=== PATIENT | female | born 1990 | race Caucasian/White ===

== ENCOUNTER 2021-11-28 08:00 | Outpatient (RCR) | payer MEDICAID, SELFPAY ==
--- NOTE | 2021-10-10 17:43 | PT.OPEX ---
PT [facility] Eval Start: 10/10/21 07:59 Freq: Status: Active Protocol: Document 10/10/21 15:16 JUAN CARLOS (Rec: 10/10/21 15:33 JUAN CARLOS [id number]) E-signed By Radha Weiner, PT Physical Therapy Outpatient Evaluation Insurance Information Recert Due Date 12/09/21 Insurance Name Medicaid,[employer] Medical Diagnosis constipation weakness of PF Treating Diagnosis weakness muscle spams mild AURELIANO Subjective Subjective Carolynn presents to PT with diagnosis of constipation and weakness of PFM. Pt's main c /o is bleeding and pain with defecation. Does have issues with hemorrhoids. Pt has struggled with hemorrhoids and pain with defecation since her youth. Did struggle with constipation but has been able to have daily BMs. Her BMs seems to have improved after the of her second child approx 4 months ago. Her first child is 1.5 yrs ago. She admits to pain with intercourse and limited ability to orgasm. Has not been able to tolerate full penetration for years rating her pain as a 6/10 with any vaginal penetration. Pt has very mild AURELIANO symptoms. Goal for therapy is to get some relief of her symptoms. Precautions Treatment Precautions/Contraindications depression anxiety hemorrhoids - rectal bleeding with defecating. Assessment Assessment/Impression 31 yo client presents with c/o rectal pain and bleeding with defecation, issues with hemorrhoids, severe pain with vaginal penetration and mild AURELIANO symptoms. Pt has had a long history of PFM function with symptoms since her youth. Does admit to issues with limited hydration/fluid intake and infrequent urination (at worst only urinating 2 times a day). Stool consistency can be good but her hemorrhoid and bleeding occurs with firmer stools or stool that are difficult to pass. Has not been successful with managing the pain and bleeding with defecation. Symptoms she is describing are congruent with symptoms of PFM dysfunction. Did not have time to fully assess PFM today. Will complete at the next session if able. Plan is to continue with further skilled PT services including use of therapeutic exercise, therapeutic activities, neuromuscular re-ed, manual therapy, and self cares for symptom reduction and improvement in her function. Plan of Care Rehabilitation Potential Good Physical Therapy Goals Short term goals to be achieved in 4 weeks 1. Able to report a reduction in rectal pain and bleeding with BMs by 40% or more. 2. Pt will demonstrate proper toileting posture and pushing techniques to improve bowel function and reduce symptoms of hemorrhoids. 3. Pt will report no leaking with coughing, sneezing, jumping. 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 1. Independent with self-care program to allow for reduction in her bowel symptoms 2. Will report at least an 80% improvement in her pain with bowel movement. 3. Able to report a decrease in rectal bleeding to 1 time a week or less with defecation 4. Able to tolerate intercourse with pain no greater than 2/10 Coordination/Communication With Referral Source Treatment Plan/Direct Interventions Joint Mobilization,Manual Therapy,Neuromuscular Re-ed, Self-Care/Home Management, Therapeutic Activities, Therapeutic Exercises Frequency/Duration 1 times a week for up to 12 visits Patient Will Be Discharged From Therapy Completion of LTG(s),Skills Plateau,Independent w/HEP, Independently Progressing Evaluation Billing Untimed Code Treatment Minutes 40 Complexity Moderate Certification Information Initial Certification Date 10/10/21 Ending Certification Date 12/09/21 Provider Signature Shows Agreement With POC & Medical Necessity Physician Comment/Change Comment or Changes Physician NPI Number #
== END 2022-04-01 09:24 | disposition home or self-care (01) ==
PROVIDERS: Visit Provider Advanced Practice Midwife
DX: N81.89 Other female genital prolapse (principal); Z51.89 Encounter for other specified aftercare
CPT/HCPCS: 97110; 97140; 97162; 97535

== ENCOUNTER 2022-03-17 10:05 | Outpatient (CLI) | payer MEDICAID, SELFPAY ==
[2022-03-17 11:55] LABS: HCG Quantitative* < 2.39 mIU/mL
[2022-03-18 22:06] LABS: Follicle Stimulating Hormone 4.7 IU/L
== END 2022-03-17 10:06 | disposition home or self-care (01) ==
PROVIDERS: Visit Provider Obstetrics & Gynecology
DX: N91.2 Amenorrhea, unspecified (principal); F41.9 Anxiety disorder, unspecified; F32.A Depression, unspecified
CPT/HCPCS: 83001; 84443; 84702

== ENCOUNTER 2022-03-27 13:04 | Outpatient (CLI) | payer MEDICAID, SELFPAY ==
--- NOTE | 2022-03-27 16:31 | W.PM.LAC.MC ---
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 Delivery Information Delivery type: Vaginal Baby's Information Baby's Age at Visit: 9 months Reason for Consult Reason for Consult: difficulty with milk supply Past Experience Past Experience: Yes (nursed older child about 8 months and this baby until a few weeks ago) Pumping Pumping: Yes (she is trying to pump about every three hours ) Quantity Pumped: currently getting 2 - 4 oz total each time Supplementing EMB Supplement: Yes (baby takes a 5 - 6 oz bottle at every feeding, also some solids) Formula Supplement: No Breast/Nipple Condition Breast Information: WNL Sore Nipples: Yes Assessments/Interventions Assessments/Interventions: Met with patient who until about 2 weeks ago was nursing her now 9 month old baby without issue. To briefly re-cap (see phone encounter for full details) baby stopped nursing abruptly and mom has been unable to entice her back to the breast despite multiple attempts. Once baby stopped nursing, mom began pumping about every three hours to protect her supply but has noticed a steady drop in production. She has gone from pumping about 8 oz total each time to now at best 4 oz total each time. She has some EBM stored but would really like to pump enough so that she can provide baby with EBM until her first birthday. She's here for an evaluation of her pump and flange sizes. She's using a Medela pump that she used with her first child. She ordered new tubing (hasn't rec'd yet) and was given new membranes in clinic. Her nipples were measured and are about 15 mm. She's been using a 21 mm flange and states it's more comfortable than the 24 mm. While pumping in clinic her nipples appear somewhat elastic and are getting pulled into the horn of the flange. They look irritated at the base of the nipple when she finished pumping. She got about 2 oz total so suggested she hand express and she was able to get another 15 ml (she could have gotten more as there was still a stream from the right side, but she wanted to stop). Ideas: 1. Suggested she consider a new pump- insurance may not pay for one as baby is older, but she could look on-line for a gently used one. With or without a new pump new tubing is a good idea. 2. Could order a 17 mm flange and see if this felt better/reduced the irritation around the base of the nipple and see if the nipple didn't pull so far into the flange; a flange fit guide was given. 3. Consider hand expressing for the same amount of time she pumps for some of her pumping sessions OR at least add in some hand expression after pumping. Could also use breast compression while pumping. 4. Gave handout on galactogogues and suggestions on which ones to try if she chooses to try one. Could also try a beer- she's anxious by nature and this may help relax her. Reviewed only one/day and to pump first, then have it with a meal (pump and dump if she feels any effects of the alcohol at the next pumping session). 5. Encouraged her to concentrate on how well she's done and all the milk she's provided for baby over these last 9 months as opposed to beating herself up for her dropping supply. She's done an amazing job! Meds Home Medications and Allergies Allergies Allergy/AdvReac Type Severity Reaction Status Date / Time cefaclor Allergy Unknown Hives Verified 03/17/22 09:46 meperidine Allergy Unknown Hives Verified 03/17/22 09:46
== END 2022-03-27 13:05 | disposition home or self-care (01) ==
LOC: OB LAC 13:05
PROVIDERS: PCP Family Medicine; Visit Provider Obstetrics & Gynecology
DX: Z39.1 Encounter for care and examination of lactating mother (principal)
CPT/HCPCS: 99211

== ENCOUNTER 2022-09-11 10:55 | Outpatient (CLI) | payer MEDICAID, SELFPAY | END 2022-09-11 10:56 | disposition home or self-care (01) | PROVIDERS: PCP Family Medicine; Visit Provider Advanced Practice Midwife | DX: Z13.6 Encounter for screening for cardiovascular disorders (principal); Z13.1 Encounter for screening for diabetes mellitus | CPT/HCPCS: 80061; 82947 ==

== ENCOUNTER 2023-08-17 11:29 | Outpatient (CLI) | payer MEDICAID, SELFPAY | END 2023-08-17 11:30 | disposition home or self-care (01) | PROVIDERS: PCP Family Medicine; Visit Provider Obstetrics & Gynecology | DX: E74.21 Galactosemia (principal); R68.82 Decreased libido; R63.5 Abnormal weight gain; Z13.220 Encounter for screening for lipoid disorders; Z13.29 Encounter for screening for other suspected endocrine disorder | CPT/HCPCS: 80061; 84146; 84270; 84402; 84403; 84443 ==